=== PATIENT | male | born 1995 | race Caucasian/White ===

== ENCOUNTER 2018-10-28 15:23 | Outpatient (REF) | payer BC, OTHER, SELFPAY ==
[2018-10-28 21:06] LABS: Abs Immature Grans 0.03 k/cumm (0.0-0.09); Absolute Basophil Count 0.02 k/cumm (0.0-0.2); Absolute Eosinophil Count 0.29 k/cumm (0.0-0.7); Absolute Lymphocyte Count 1.88 k/cumm (1.2-3.4); Absolute Monocyte Count 0.68 k/cumm (0.11-0.7); Absolute Neutrophil Count 5.12 k/cumm (1.2-6.7); Basophils % 0.2; Eosinophils % 3.6; HCT 44.9 % (40.0-50.0); HGB 15.7 g/dL (13.5-17.5); Immature Grans % 0.4; Lymphocytes % 23.4; Mean Corpuscular Hemoglobin 28.2 pg (27.0-33.0); Mean Corpuscular Volume 80.6 fL (80-95); Mean Platelet Volume 10.3 fL (8.0-11.0); Monocytes % 8.5; Neutrophils % 63.9; Platelet Count 249 x1000/uL (130-400); RBC 5.57 m/cumm (4.50-6.00); RBC Distribution Width 13.3 % (11.8-14.1); White Blood Cell Count 8.02 k/cumm (4.4-10.8)
[2018-10-28 21:18] LABS: ALT 32 U/L (12-78); AST 20 U/L (15-37); Albumin 4.1 g/dL (3.4-5.0); Alkaline Phosphatase 89 U/L (46-116); Anion Gap 8.9 mmol/L (3-11); BUN 22 mg/dL (7-18); Bilirubin, Total 0.4 mg/dL (0.2-1.0); CO2 29.1 mmol/L (21.0-32.0); CREATININE 0.83 mg/dL (0.70-1.30); Calcium 9.2 mg/dL (8.5-10.1); Chloride 102 mmol/L (98-107); Glucose 96 mg/dL (70-100); Potassium 4.2 mmol/L (3.5-5.1); Sodium 140 mmol/L (136-145); Total Protein 7.4 g/dL (6.4-8.2)
[2018-10-31 10:52] LABS: HIV-1/2 Ag & Ab Screen Negative (NEGAT); Hepatitis A Antibody IgM Negative (NEGAT); Hepatitis B Core Antibody Negative (NEGAT); Hepatitis B surface Ag Negative (NEGAT); Hepatitis C Ab w Rflx HCV PCR Negative (NEGAT)
[2018-10-31 12:12] LABS: Syphilis Serology (RPR) Negative (Negative)
[2018-11-01 19:43] LABS: HCV Genotype Undetected (Undetected)
== END 2018-10-28 15:43 ==
LOC: NCHCN 15:23
PROVIDERS: PCP Internal Medicine; Visit Provider Nurse Practitioner Family
DX: Z00.00 Encounter for general adult medical examination without abnormal findings (principal); Z11.4 Encounter for screening for human immunodeficiency virus [HIV]; Z11.59 Encounter for screening for other viral diseases; Z13.0 Encounter for screening for diseases of the blood and blood-forming organs and certain disorders involving the immune mechanism; Z13.228 Encounter for screening for other metabolic disorders
CPT/HCPCS: 80053; 86704; 86709; 86803; 87340; 87389; 87491; 87591; 85025; 86592; 87521

== ENCOUNTER 2018-11-07 18:42 | Outpatient (REF) | payer BC, OTHER, SELFPAY ==
[2018-11-10 07:27] LABS: Chlamydia Result Negative; GC Result Negative; Specimen Description URINE
== END 2018-11-07 19:02 ==
LOC: NCHCN 18:42
PROVIDERS: PCP Internal Medicine; Visit Provider Nurse Practitioner Family
DX: Z11.3 Encounter for screening for infections with a predominantly sexual mode of transmission (principal)
CPT/HCPCS: 87491; 87591

== ENCOUNTER 2021-04-15 20:50 | Outpatient (REF) | payer SELFPAY ==
[2021-04-16 15:31] LABS: Source Nasal/Nares
[2021-04-16 15:40] LABS: COVID-19 PCR Negative (Negative)
== END 2021-04-15 20:51 | disposition home or self-care (01) ==
LOC: LBN 20:50
PROVIDERS: PCP Internal Medicine; Visit Provider Nurse Practitioner Family
DX: Z20.822 Contact with and (suspected) exposure to COVID-19 (principal)
CPT/HCPCS: 87635